=== PATIENT | female | born 1945 | race Caucasian/White ===

== ENCOUNTER 2018-05-06 11:35 | Outpatient (CLI) | payer MEDICARE | END 2018-05-06 11:36 | disposition home or self-care (01) | LOC: BICMAMMO 11:35 | PROVIDERS: ATTEND Internal Medicine | DX: Z12.31 Encounter for screening mammogram for malignant neoplasm of breast (principal); R92.1 Mammographic calcification found on diagnostic imaging of breast | CPT/HCPCS: 77063; 77067 ==

== ENCOUNTER 2019-05-08 11:25 | Outpatient (CLI) | payer MEDICARE ==
--- NOTE | 2019-05-08 12:21 | MMO ---
Bilateral MAMMO Bilat Screen [facility]. CLINICAL HISTORY: Patient is 74 years old and is seen for screening. The patient has no family history of breast cancer. The patient has no personal history of cancer. The patient has a history of right Excisional Biopsy in Feb, 2010 - benign. VIEWS: The views performed were: bilateral craniocaudal with tomosynthesis and bilateral mediolateral oblique with tomosynthesis. FILMS COMPARED: The present examination has been compared to prior imaging studies performed at [facility] on 03/18/2015, 03/28/2016, 05/01/2017 and 05/06/2018. MAMMOGRAM FINDINGS: There are scattered fibroglandular densities. Finding 1: There is an area of architectural distortion with associated post-surgical scar seen in the right breast. Finding 2: There are stable benign appearing calcifications seen in both breasts. There are no suspicious masses, suspicious calcifications, or new areas of architectural distortion. IMPRESSION: THERE IS NO MAMMOGRAPHIC EVIDENCE OF MALIGNANCY. A ROUTINE FOLLOW-UP MAMMOGRAM IN 1 YEAR IS RECOMMENDED. THE RESULTS OF THIS EXAM WERE SENT TO THE PATIENT. ACR BI-RADS Category 2 - Benign finding MAMMOGRAPHY NOTE: 1. A negative mammogram report should not delay a biopsy if a dominant of clinically suspicious mass is present. 2. Approximately 10% to 15% of breast cancers are not detected by mammography. 3. Adenosis and dense breasts may obscure an underlying neoplasm. Reported by: SHIVANI WARD MD Electonically Signed: [id number]
== END 2019-05-08 11:26 | disposition home or self-care (01) ==
LOC: BICMAMMO 11:25
PROVIDERS: ATTEND Internal Medicine
DX: Z12.31 Encounter for screening mammogram for malignant neoplasm of breast (principal); Z91.89 Other specified personal risk factors, not elsewhere classified
CPT/HCPCS: 77063; 77067

== ENCOUNTER 2020-05-12 11:30 | Outpatient (CLI) | payer MEDICARE, OTHER ==
--- NOTE | 2020-05-12 14:12 | MMO ---
Bilateral MAMMO Bilat Screen [facility]. CLINICAL HISTORY: Patient is 75 years old and is seen for screening. The patient has no family history of breast cancer. The patient has no personal history of cancer. The patient has a history of right Excisional Biopsy in Feb, 2010 - benign. VIEWS: The views performed were: bilateral craniocaudal with tomosynthesis and bilateral mediolateral oblique with tomosynthesis. FILMS COMPARED: The present examination has been compared to prior imaging studies performed at [facility] on 03/28/2016, 05/01/2017, 05/06/2018 and 05/08/2019. This study has been interpreted with the assistance of computer-aided detection. MAMMOGRAM FINDINGS: There are scattered fibroglandular densities. Benign calcifications are noted bilaterally. There are stable right post-operative changes. There are no suspicious masses, suspicious calcifications, or new areas of architectural distortion. IMPRESSION: THERE IS NO MAMMOGRAPHIC EVIDENCE OF MALIGNANCY. A ROUTINE FOLLOW-UP MAMMOGRAM IN 1 YEAR IS RECOMMENDED. THE RESULTS OF THIS EXAM WERE SENT TO THE PATIENT. ACR BI-RADS Category 2 - Benign finding MAMMOGRAPHY NOTE: 1. A negative mammogram report should not delay a biopsy if a dominant of clinically suspicious mass is present. 2. Approximately 10% to 15% of breast cancers are not detected by mammography. 3. Adenosis and dense breasts may obscure an underlying neoplasm. Reported by: JOSE MIGUEL CLOUD MD Electonically Signed: [id number]
== END 2020-05-12 11:31 | disposition home or self-care (01) ==
LOC: BICMAMMO 11:30
PROVIDERS: ATTEND Internal Medicine
DX: Z12.31 Encounter for screening mammogram for malignant neoplasm of breast (principal); Z91.89 Other specified personal risk factors, not elsewhere classified
CPT/HCPCS: 77063; 77067

== ENCOUNTER 2021-05-13 10:58 | Outpatient (CLI) | payer MEDICARE, OTHER | END 2021-05-13 10:59 | disposition home or self-care (01) | LOC: BICMAMMO 10:58 | PROVIDERS: ATTEND Internal Medicine | DX: Z12.31 Encounter for screening mammogram for malignant neoplasm of breast (principal); Z91.89 Other specified personal risk factors, not elsewhere classified | CPT/HCPCS: 77063; 77067 ==

== ENCOUNTER 2021-08-23 08:29 | Outpatient (CLI) | payer MEDICARE, OTHER | END 2021-08-23 08:30 | disposition home or self-care (01) | LOC: NM 08:29 | PROVIDERS: ATTEND Internal Medicine | DX: D35.1 Benign neoplasm of parathyroid gland (principal); R93.89 Abnormal findings on diagnostic imaging of other specified body structures | CPT/HCPCS: 78072; A9500 ==

== ENCOUNTER 2022-02-16 15:02 | Outpatient (CLI) | payer MEDICARE, OTHER ==
[2022-02-16 15:57] LABS: Hemoglobin 14.8 g/dL (12.0-15.5); Mean Corpuscular HGB CONC 33.2 g/dL (32.0-36.0); Mean Corpuscular Volume 90.3 fl (81.6-98.3); Mean Platelet Volume 10.3 fl (7.4-10.4); Platelet Count 239 10x3/uL (150-450); RBC Distribution Width 12.5 % (11.5-14.5); Red Blood Cell (RBC) Count 4.94 10x6/uL (3.90-5.03); White Blood Cell (WBC) Count 8.4 10x3/uL (3.5-10.5)
[2022-02-16 16:16] LABS: INR-International Normal Ratio 0.9; PTT 25.6 sec (22.0-33.0); Prothrombin Time 10.1 sec (9.5-12.1)
[2022-02-16 16:36] LABS: Calc. Creatinine Clearance 0 mL/min (70-130)
[2022-02-16 16:37] LABS: Anion Gap 13 mmol/L (10-20); BUN (Urea Nitrogen) 19 mg/dL (9.8-20.1); Calcium 10.5 mg/dL (7.8-10.44); Carbon Dioxide 28 mmol/L (23-31); Chloride 105 mmol/L (98-107); Glucose 114 mg/dL (83-110); Potassium 3.8 mmol/L (3.5-5.1); Sodium 142 mmol/L (136-145)
[2022-02-16 23:18] LABS: SARS-CoV-2 PCR by NAA Not Detected (NotDetected)
== END 2022-02-16 15:03 | disposition home or self-care (01) ==
LOC: LABBT 15:02
PROVIDERS: ATTEND Surgery
DX: Z01.818 Encounter for other preprocedural examination (principal); M43.16 Spondylolisthesis, lumbar region; M48.061 Spinal stenosis, lumbar region without neurogenic claudication; Z20.822 Contact with and (suspected) exposure to COVID-19
CPT/HCPCS: 80048; 85027; 85610; 85730; 93005; U0003; U0005; 93010

== ENCOUNTER 2022-02-21 05:54 | Inpatient (IN) | payer MEDICARE, OTHER ==
[2022-02-21] MEDS ORDERED: Thrombin 5000 UNITS/5 ML VIAL ONE (06:34)
[2022-02-21] MEDS ORDERED: fentaNYL Citrate/PF 100 MCG/2 ML SYRINGE ONE (06:57)
[2022-02-21] MEDS ORDERED: Scopolamine 1.5 mg/72 hour Patch ONE (07:16)
[2022-02-21] MEDS ORDERED: Midazolam HCl 2 mg/2 ml Vial ONE (07:16)
[2022-02-21] MEDS ORDERED: ceFAZolin (BATCH) 2 GM/100 ML BAG ONE (07:22)
[2022-02-21] MEDS ORDERED: Dexamethasone 20 MG/5 ML VIAL ONE (07:54)
[2022-02-21] MEDS ORDERED: Lidocaine 1% PF 5 ML VIAL ONE (07:54)
[2022-02-21] MEDS ORDERED: ePHEDrine 50 MG/ML VIAL ONE (07:54)
[2022-02-21] MEDS ORDERED: Glycopyrrolate 0.2 MG/ML 5 ML SYRINGE ONE (07:54)
[2022-02-21] MEDS ORDERED: Ondansetron PF 4 MG/2 ML Vial ONE (07:54)
[2022-02-21] MEDS ORDERED: PROPOFOL 200 MG/20 ML VIAL ONE (07:54)
[2022-02-21] MEDS ORDERED: Rocuronium Bromide 10 MG/ML (10ML VIAL) ONE (07:54)
[2022-02-21] MEDS ORDERED: Ondansetron PF 4 MG/2 ML Vial IVP PRN ×2 (09:59→20:11)
[2022-02-21] MEDS ORDERED: Acetaminophen 325 MG TAB PO PRN (09:59)
[2022-02-21] MEDS ORDERED: Acetaminophen/Codeine 30-300mg Tablet PO PRN (09:59)
[2022-02-21] MEDS ORDERED: HYDROcodone/Acetaminophen 7.5/325 mg Tablet PO PRN (09:59)
[2022-02-21] MEDS ORDERED: traMADol HCl 50 MG TAB PO PRN ×2 (09:59→20:35)
[2022-02-21] MEDS ORDERED: HYDROmorphone 0.5 MG/0.5 ML SYRINGE ONE ×2 (10:08→10:28)
[2022-02-21] MEDS ORDERED: Ondansetron HCl/PF 4 MG/2 ML Vial IVP PRN (10:11)
[2022-02-21] MEDS ORDERED: Promethazine HCl 25 MG/ML VIAL IM PRN ×2 (10:11→20:11)
[2022-02-21] MEDS ORDERED: Promethazine HCl 25 MG/ML VIAL IVPB PRN (10:11)
[2022-02-21] MEDS ORDERED: Fentanyl 250 MCG/5 ML VIAL ONE (10:26)
[2022-02-21] MEDS: tiZANidine HCl 4 MG TAB PO PRN ×2 (10:42→19:57)
[2022-02-21] MEDS: Sodium Chloride 0.9% 1,000 ML IV SCH ×2 (12:50→13:15)
[2022-02-21] MEDS: Gabapentin 300 MG CAP PO SCH ×2 (13:59→20:15)
[2022-02-21] MEDS: hydrALAZINE 25 MG TAB PO SCH ×2 (13:59→20:14)
[2022-02-21] MEDS: Morphine 2 MG/ML VIAL SLOW IVP PRN ×3 (15:56→19:56)
[2022-02-21] MEDS: ceFAZolin (BATCH) 2 GM in Premix Bag 1 BAG IVPB SCH (16:15)
[2022-02-21] MEDS ORDERED: Zolpidem Tartrate 5 MG TAB PO PRN (20:11)
[2022-02-21] MEDS ORDERED: fentaNYL Citrate/PF 2,000 MCG in Sodium Chloride 0.9% 60 ML IV PRN (20:11)
[2022-02-21] MEDS ORDERED: diphenhydrAMINE 50 MG/ML VIAL IVP PRN (20:11)
[2022-02-21] MEDS ORDERED: diphenhydrAMINE 50 MG/ML VIAL IM PRN (20:11)
[2022-02-21] MEDS ORDERED: diphenhydrAMINE 25 MG CAP PO PRN (20:11)
[2022-02-21] MEDS ORDERED: Naloxone HCl 0.4 mg/ml Vial IV PRN (20:11)
[2022-02-21] MEDS ORDERED: Communication Order-Pharmacy FS SCH (20:15)
[2022-02-21] MEDS ORDERED: Fentanyl CADD 100 ML IVPB SCH (20:15)
[2022-02-21] MEDS: Atorvastatin Calcium 10 MG TAB PO SCH (20:15)
[2022-02-21] MEDS: Zinc Sulfate 220 MG CAP PO SCH (20:15)
[2022-02-21] MEDS ORDERED: Fentanyl 100 MCG/2 ML VIAL SLOW IVP SCH (20:30)
[2022-02-21] MEDS: Acetaminophen 325 MG TAB PO SCH (20:50)
[2022-02-21] MEDS: Ketorolac Tromethamine 30 MG/ML VIAL IVP SCH (21:58)
[2022-02-21] MEDS ORDERED: Acetaminophen 325 MG TAB PO SCH (23:59)
[2022-02-21] MEDS ORDERED: Ketorolac Tromethamine 30 MG/ML VIAL IVP SCH (23:59)
[2022-02-22] MEDS: ceFAZolin (BATCH) 2 GM in Premix Bag 1 BAG IVPB SCH
[2022-02-22] MEDS: Sodium Chloride 0.9% 1,000 ML IV SCH ×2 (02:21→15:15)
[2022-02-22] MEDS: Acetaminophen 325 MG TAB PO SCH ×4 (02:29→21:10)
[2022-02-22] MEDS: Ketorolac Tromethamine 30 MG/ML VIAL IVP SCH ×4 (02:31→21:08)
[2022-02-22] MEDS: tiZANidine HCl 4 MG TAB PO PRN ×2 (04:09→21:24)
[2022-02-22] MEDS: Gabapentin 300 MG CAP PO SCH ×3 (08:48→21:08)
[2022-02-22] MEDS: Zinc Sulfate 220 MG CAP PO SCH ×2 (08:48→21:07)
[2022-02-22] MEDS: Calcium Carbonate 600 MG + Vit D TAB PO SCH ×2 (08:48→08:49)
[2022-02-22] MEDS: hydrALAZINE 25 MG TAB PO SCH ×3 (08:48→21:06)
[2022-02-22] MEDS: Multivitamin W/ Minerals 1 TAB PO SCH (08:48)
[2022-02-22] MEDS: Cholecalciferol 1,000 UNITS (25 MCG) TAB PO SCH (08:48)
[2022-02-22] MEDS ORDERED: Polyethylene Glycol 3350 17 GM Packet PO PRN (09:27)
[2022-02-22] MEDS ORDERED: Bisacodyl 5 MG TAB PO PRN (09:27)
[2022-02-22] MEDS ORDERED: Bisacodyl 10 MG SUPP PR PRN (09:27)
[2022-02-22] MEDS: Losartan/Hydrochlorothiazide 100 mg/25 mg Tablet PO SCH (10:30)
[2022-02-22] MEDS: Docusate 100 MG CAP PO SCH ×2 (10:30→21:07)
[2022-02-22 14:52] VITALS: BMI 29.9
[2022-02-22] MEDS: Atorvastatin Calcium 10 MG TAB PO SCH (21:07)
[2022-02-23] MEDS: Ketorolac Tromethamine 30 MG/ML VIAL IVP SCH ×4 (03:36→20:41)
[2022-02-23] MEDS: Acetaminophen 325 MG TAB PO SCH ×4 (03:37→20:41)
[2022-02-23] MEDS: Sodium Chloride 0.9% 1,000 ML IV SCH (03:42)
[2022-02-23] MEDS: Docusate 100 MG CAP PO SCH ×2 (08:54→20:44)
[2022-02-23] MEDS: Cholecalciferol 1,000 UNITS (25 MCG) TAB PO SCH (08:54)
[2022-02-23] MEDS: Gabapentin 300 MG CAP PO SCH ×3 (08:54→20:40)
[2022-02-23] MEDS: hydrALAZINE 25 MG TAB PO SCH ×3 (08:55→20:42)
[2022-02-23] MEDS: Zinc Sulfate 220 MG CAP PO SCH ×2 (08:56→20:40)
[2022-02-23] MEDS: Multivitamin W/ Minerals 1 TAB PO SCH (08:56)
[2022-02-23] MEDS: Losartan/Hydrochlorothiazide 100 mg/25 mg Tablet PO SCH (08:56)
[2022-02-23] MEDS: Fentanyl 100 MCG/2 ML VIAL SLOW IVP PRN (17:30)
[2022-02-23] MEDS: Atorvastatin Calcium 10 MG TAB PO SCH (20:40)
[2022-02-24] MEDS: Acetaminophen 325 MG TAB PO SCH ×2 (03:25→10:31)
[2022-02-24] MEDS: tiZANidine HCl 4 MG TAB PO PRN (03:26)
[2022-02-24] MEDS ORDERED: HYDROcodone/Acetaminophen 5/325 mg Tablet PO PRN (07:55)
[2022-02-24] MEDS ORDERED: Acetaminophen/Codeine 30-300mg Tablet PO PRN (07:56)
[2022-02-24 08:41] VITALS: BP 131/79; TEMP 98.9
[2022-02-24] MEDS: Fentanyl 100 MCG/2 ML VIAL SLOW IVP PRN (09:32)
[2022-02-24] MEDS: Calcium Carbonate 600 MG + Vit D TAB PO SCH (10:30)
[2022-02-24] MEDS: Zinc Sulfate 220 MG CAP PO SCH (10:30)
[2022-02-24] MEDS: Multivitamin W/ Minerals 1 TAB PO SCH (10:30)
[2022-02-24] MEDS: hydrALAZINE 25 MG TAB PO SCH (10:30)
[2022-02-24] MEDS: Gabapentin 300 MG CAP PO SCH (10:31)
[2022-02-24] MEDS: Cholecalciferol 1,000 UNITS (25 MCG) TAB PO SCH (10:31)
[2022-02-24] MEDS: Losartan/Hydrochlorothiazide 100 mg/25 mg Tablet PO SCH (10:31)
[2022-02-24] MEDS: Docusate 100 MG CAP PO SCH (10:32)
== END 2022-02-24 12:48 | DRG 460 ==
LOC: SDC 05:54 → MSONC 10:04 → OBSVTOIN 02-22 16:13
PROVIDERS: ADMIT Surgery; ATTEND Surgery
PROC: 0SG1071 Fusion of 2 or more Lumbar Vertebral Joints with Autologous Tissue Substitute, Posterior Approach, Posterior Column, Open Approach (ICD-10-PCS; principal; 2022-02-21)
PROC: 01NB0ZZ Release Lumbar Nerve, Open Approach (ICD-10-PCS; 2022-02-21)
DX: M48.062 Spinal stenosis, lumbar region with neurogenic claudication (principal); M43.16 Spondylolisthesis, lumbar region; Z20.822 Contact with and (suspected) exposure to COVID-19; Z79.899 Other long term (current) drug therapy
CPT/HCPCS: 36415; 76000; 82565; 96365; 96375; 96376; C1713; G0378; J0690; J1100; J1170; J1885; J2250; J2270; J2405; J2704; J3010; J3370; J3490; J7050

== ENCOUNTER 2022-05-17 11:50 | Outpatient (CLI) | payer MEDICARE, OTHER | END 2022-05-17 11:51 | disposition home or self-care (01) | LOC: BICMAMMO 11:50 | PROVIDERS: ATTEND Internal Medicine | DX: Z12.31 Encounter for screening mammogram for malignant neoplasm of breast (principal); Z91.89 Other specified personal risk factors, not elsewhere classified | CPT/HCPCS: 77063; 77067 ==

== ENCOUNTER 2022-12-25 11:43 | Emergency (ER) | payer MEDICARE, OTHER ==
[2022-12-25] MEDS ORDERED: Albuterol 200 PUFF (6.7GM INHALER) ONE (12:39)
[2022-12-25 12:49] LABS: #Basophils 0.1 thou/uL (0.0-0.2); #Eosinphils 0.5 thou/uL (0.0-0.7); #Lymphocytes 1.3 thou/uL (1.20-3.40); #Monocytes 0.8 thou/uL (0.11-0.59); #Neutrophils 4.7 thou/uL (1.40-6.50); %Basophils 0.9 % (0.0-1.0); %Eosinophils 6.8 % (0.0-10.0); %Lymphocytes 17.2 % (21.0-51.0); %Monocytes 11.1 % (0.0-10.0); Mean Corpuscular HGB CONC 32.9 g/dL (32.0-36.0); Mean Corpuscular Hemoglobin 31.2 pg (27.0-31.0); Mean Corpuscular Volume 94.8 fl (78.0-98.0); Mean Platelet Volume 8.2 fL (7.4-10.4); Platelet Count 181 10x3/uL (130-400); RBC Distribution Width 11.9 % (11.5-14.5); Red Blood Cell (RBC) Count 4.81 mill/uL (4.20-5.40); White Blood Cell (WBC) Count 7.4 10x3/uL (4.8-10.8)
[2022-12-25 13:18] LABS: ALT (SGPT) 30 U/L (8-55); AST (SGOT) 35 U/L (5-34); Albumin 4.1 g/dL (3.4-4.8); Alkaline Phosphatase 90 U/L (40-110); Anion Gap 13 mmol/L (10-20); BUN (Urea Nitrogen) 11 mg/dL (9.8-20.1); Bilirubin, Total 0.7 mg/dL (0.2-1.2); Calc. Creatinine Clearance 0 mL/min (70-130); Calcium 10.3 mg/dL (7.8-10.44); Carbon Dioxide 28 mmol/L (23-31); Chloride 102 mmol/L (98-107); Estimated GFR 84; Globulin 2.9 g/dL (2.4-3.5); Glucose 136 mg/dL (83-110); Lipase 15 U/L (8-78); Potassium 3.3 mmol/L (3.5-5.1); Sodium 140 mmol/L (136-145)
[2022-12-25] MEDS ORDERED: Potassium Chloride 20 MEQ TAB ONE (14:01)
== END 2022-12-25 14:00 | disposition home or self-care (01) ==
LOC: ERS 11:43
DX: U07.1 COVID-19 (principal); R07.9 Chest pain, unspecified; I10 Essential (primary) hypertension
CPT/HCPCS: 36415; 71045; 80053; 83690; 83880; 84484; 85025; 93005; 94664

== ENCOUNTER 2023-05-18 11:03 | Outpatient (CLI) | payer MEDICARE, OTHER | END 2023-05-18 11:04 | disposition home or self-care (01) | LOC: BICMAMMO 11:03 | PROVIDERS: ATTEND Internal Medicine | DX: Z12.31 Encounter for screening mammogram for malignant neoplasm of breast (principal); Z91.89 Other specified personal risk factors, not elsewhere classified | CPT/HCPCS: 77063; 77067 ==

== ENCOUNTER 2023-07-28 22:44 | Inpatient (IN) | payer MEDICARE, OTHER ==
[~2023-07-28 22:44] MED LIST: Iopamidol-370 76% 500 ML MDV (1 ML CHARGE) ONE
[2023-07-28] MEDS ORDERED: Ondansetron PF 4 MG/2 ML Vial ONE (23:40)
[2023-07-28] MEDS ORDERED: Morphine 4 MG/ML VIAL ONE (23:40)
[2023-07-28 23:52] LABS: #Monocytes 0.8 thou/uL (0.11-0.59); #Neutrophils 11.3 thou/uL (1.40-6.50); %Basophils 0.3 % (0.0-1.0); %Eosinophils 0.2 % (0.0-10.0); %Lymphocytes 10.2 % (21.0-51.0); %Monocytes 5.8 % (0.0-10.0); %Neutrophils 83.2 % (42.0-75.0); Hematocrit 45.6 % (36.0-47.0); Hemoglobin 15.6 g/dL (12.0-16.0); Mean Corpuscular HGB CONC 34.2 g/dL (32.0-36.0); Mean Corpuscular Hemoglobin 30.5 pg (27.0-31.0); Mean Corpuscular Volume 89.2 fl (78.0-98.0); Mean Platelet Volume 10.1 fL (7.4-10.4); Platelet Count 281 10x3/uL (130-400); RBC Distribution Width 12.5 % (11.5-14.5); Red Blood Cell (RBC) Count 5.11 mill/uL (4.20-5.40); White Blood Cell (WBC) Count 13.6 10x3/uL (4.8-10.8)
[2023-07-29 00:18] LABS: Troponin I Less than 0.010 ng/mL (< 0.028)
[2023-07-29 00:21] LABS: ALT (SGPT) 19 U/L (8-55); AST (SGOT) 24 U/L (5-34); Albumin 4.2 g/dL (3.4-4.8); Alkaline Phosphatase 80 U/L (40-110); Anion Gap 17 mmol/L (10-20); BUN (Urea Nitrogen) 24 mg/dL (9.8-20.1); Bilirubin, Total 0.9 mg/dL (0.2-1.2); Calc. Creatinine Clearance 0 mL/min (70-130); Calcium 9.9 mg/dL (7.8-10.44); Carbon Dioxide 24 mmol/L (23-31); Chloride 99 mmol/L (98-107); Estimated GFR 82; Globulin 2.5 g/dL (2.4-3.5); Glucose 187 mg/dL (83-110); Lipase 24 U/L (8-78); Potassium 3.4 mmol/L (3.5-5.1); Protein, Total 6.7 g/dL (5.8-8.1); Sodium 137 mmol/L (136-145)
[2023-07-29] MEDS ORDERED: SUGAMMADEX SODIUM 200 MG/2 ML VIAL ONE (00:37)
[2023-07-29] MEDS ORDERED: Fentanyl 250 MCG/5 ML VIAL ONE (00:37)
[2023-07-29] MEDS ORDERED: Morphine 4 MG/ML VIAL ONE (00:38)
[2023-07-29] MEDS ORDERED: Piperacillin/Tazobactam 4.5 GM VIAL ONE (00:49)
[2023-07-29] MEDS ORDERED: Ketorolac Tromethamine 30 MG/ML VIAL ONE (00:51)
[2023-07-29] MEDS ORDERED: TETANUS, DIPHTHERIA TOX,ADULT (TDVAX) 0.5 ML VIAL IM ONE (01:03)
[2023-07-29] MEDS ORDERED: Ondansetron PF 4 MG/2 ML Vial IVP PRN (01:03)
[2023-07-29] MEDS ORDERED: Morphine 4 MG/ML VIAL SLOW IVP PRN (01:03)
[2023-07-29] MEDS ORDERED: Ketorolac Tromethamine 30 MG/ML VIAL IVP PRN (01:07)
[2023-07-29] MEDS ORDERED: Potassium Chloride 20 MEQ in Lactated Ringer's 1,000 ML IV SCH (01:15)
[2023-07-29] MEDS ORDERED: Rocuronium Bromide 10 MG/ML (10ML VIAL) ONE (01:33)
[2023-07-29] MEDS ORDERED: Ondansetron PF 4 MG/2 ML Vial ONE (01:33)
[2023-07-29] MEDS ORDERED: Dexamethasone 20 MG/5 ML VIAL ONE (01:33)
[2023-07-29] MEDS ORDERED: Succinylcholine 200 MG/10 ml SYRINGE FS ONE (01:33)
[2023-07-29] MEDS ORDERED: ePHEDrine Sulfate 50 MG/10 ML VIAL ONE (01:33)
[2023-07-29] MEDS ORDERED: Lidocaine 1% PF 5 ML VIAL ONE (01:33)
[2023-07-29] MEDS ORDERED: PROPOFOL 200 MG/20 ML VIAL ONE (01:33)
[2023-07-29] MEDS ORDERED: diphenhydrAMINE 50 MG/ML VIAL IM PRN (02:59)
[2023-07-29] MEDS ORDERED: Naloxone HCl 0.4 mg/ml Vial IV PRN (02:59)
[2023-07-29] MEDS ORDERED: diphenhydrAMINE 50 MG/ML VIAL IVP PRN (02:59)
[2023-07-29] MEDS ORDERED: diphenhydrAMINE 25 MG CAP PO PRN (02:59)
[2023-07-29] MEDS ORDERED: Promethazine HCl 25 MG/ML VIAL IM PRN ×2 (02:59→03:03)
[2023-07-29] MEDS ORDERED: Communication Order-Pharmacy FS SCH (03:00)
[2023-07-29] MEDS ORDERED: LevoFLOXacin 750 mg/D5W 750 MG in Premix 1 BAG IVPB SCH (03:00)
[2023-07-29] MEDS ORDERED: HYDROmorphone 0.5 MG/0.5 ML SYRINGE ONE ×2 (03:01→03:18)
[2023-07-29] MEDS ORDERED: HYDROmorphone 2 MG/ML VIAL SLOW IVP PRN (03:03)
[2023-07-29] MEDS ORDERED: Ondansetron HCl/PF 4 MG/2 ML Vial IVP PRN (03:03)
[2023-07-29] MEDS ORDERED: Fentanyl CADD 100 ML IV PRN (03:11)
[2023-07-29 04:24] VITALS: BMI 30.3
[2023-07-29] MEDS: Potassium Chloride 20 MEQ in Lactated Ringer's 1,000 ML IV SCH ×3 (05:28→22:20)
[2023-07-29 05:51] LABS: #Monocytes 0.5 thou/uL (0.11-0.59); #Neutrophils 9.9 thou/uL (1.40-6.50); %Basophils 0.1 % (0.0-1.0); %Lymphocytes 4.5 % (21.0-51.0); %Monocytes 4.6 % (0.0-10.0); %Neutrophils 90.5 % (42.0-75.0); Hemoglobin 13.7 g/dL (12.0-16.0); Mean Corpuscular HGB CONC 33.4 g/dL (32.0-36.0); Mean Corpuscular Hemoglobin 30.6 pg (27.0-31.0); Mean Corpuscular Volume 91.7 fl (78.0-98.0); Mean Platelet Volume 10.3 fL (7.4-10.4); Platelet Count 189 10x3/uL (130-400); RBC Distribution Width 12.9 % (11.5-14.5); Red Blood Cell (RBC) Count 4.47 mill/uL (4.20-5.40)
[2023-07-29 06:19] LABS: ALT (SGPT) 23 U/L (8-55); AST (SGOT) 23 U/L (5-34); Albumin 4.1 g/dL (3.4-4.8); Alkaline Phosphatase 63 U/L (40-110); Anion Gap 14 mmol/L (10-20); BUN (Urea Nitrogen) 17 mg/dL (9.8-20.1); Bilirubin, Total 1.1 mg/dL (0.2-1.2); Calc. Creatinine Clearance 78 mL/min (70-130); Calcium 9.1 mg/dL (7.8-10.44); Carbon Dioxide 28 mmol/L (23-31); Chloride 100 mmol/L (98-107); Estimated GFR 80; Globulin 1.9 g/dL (2.4-3.5); Glucose 220 mg/dL (83-110); Potassium 3.5 mmol/L (3.5-5.1); Sodium 138 mmol/L (136-145)
[2023-07-29] MEDS: hydrALAZINE 25 MG TAB PO SCH ×3 (09:29→20:32)
[2023-07-29] MEDS: Pantoprazole 40 MG VIAL IVP SCH ×2 (09:30→20:35)
[2023-07-29] MEDS: Verapamil 240 MG SR.TAB PO SCH (11:15)
[2023-07-29] MEDS ORDERED: Magnevist 469MG/ML 20 ML VIAL ONE (11:34)
[2023-07-29] MEDS ORDERED: Phenol 177 ML BOT PO PRN (18:24)
[2023-07-30] MEDS: LevoFLOXacin 750 mg/D5W 750 MG in Premix 1 BAG IVPB SCH (05:06)
[2023-07-30] MEDS: Potassium Chloride 20 MEQ in Lactated Ringer's 1,000 ML IV SCH ×3 (06:00→22:14)
[2023-07-30] MEDS: Fentanyl CADD 100 ML IV PRN (06:56)
[2023-07-30] MEDS: hydrALAZINE 25 MG TAB PO SCH ×3 (08:15→21:02)
[2023-07-30] MEDS: Pantoprazole 40 MG VIAL IVP SCH ×2 (08:16→20:48)
[2023-07-30] MEDS: Verapamil 240 MG SR.TAB PO SCH (08:21)
[2023-07-30] MEDS: Senokot S 8.6-50 MG TAB PO SCH ×2 (08:38→20:47)
[2023-07-30] MEDS: Polyethylene Glycol 3350 17 GM Packet PO SCH (08:39)
[2023-07-30] MEDS ORDERED: Morphine 4 MG/ML VIAL SLOW IVP PRN (10:21)
[2023-07-30] MEDS ORDERED: Labetalol HCl 200 MG, Admixture Fee 1 EACH in Sodium Chloride 0.9% 250 ML 160 ML IVPB SCH (12:00)
[2023-07-30] MEDS ORDERED: Losartan/Hydrochlorothiazide 100 mg/25 mg Tablet PO SCH ×2 (12:03→12:30)
[2023-07-30] MEDS ORDERED: Labetalol HCl 100 MG TAB PER TUBE SCH (12:30)
[2023-07-30] MEDS: Acetaminophen 500 MG TAB PO SCH ×2 (12:44→18:27)
[2023-07-30] MEDS ORDERED: Losartan 25 MG TAB PO SCH (12:45)
[2023-07-30] MEDS ORDERED: Hydrochlorothiazide 25 MG TAB PO SCH (12:45)
[2023-07-30] MEDS: Gabapentin 300 MG CAP PO SCH ×2 (15:21→20:47)
[2023-07-30] MEDS: tiZANidine HCl 4 MG TAB PO SCH (20:48)
[2023-07-30] MEDS ORDERED: Non-Formulary Item 1 EACH (Tizanidine Hcl [Tizanidine Hcl] 4 MG Capsule) PO SCH (21:00)
[2023-07-30] MEDS: Labetalol HCl 100 MG TAB PER TUBE SCH (22:13)
[2023-07-31] MEDS: Acetaminophen 500 MG TAB PO SCH ×5 (01:02→23:27)
[2023-07-31] MEDS: LevoFLOXacin 750 mg/D5W 750 MG in Premix 1 BAG IVPB SCH (05:02)
[2023-07-31 05:30] LABS: #Eosinphils 0.5 thou/uL (0.0-0.7); #Monocytes 0.8 thou/uL (0.11-0.59); %Basophils 0.2 % (0.0-1.0); %Eosinophils 4.1 % (0.0-10.0); %Lymphocytes 12.7 % (21.0-51.0); %Monocytes 6.1 % (0.0-10.0); %Neutrophils 76.4 % (42.0-75.0); Hematocrit 40.8 % (36.0-47.0); Mean Corpuscular HGB CONC 31.9 g/dL (32.0-36.0); Mean Corpuscular Hemoglobin 30.2 pg (27.0-31.0); Mean Corpuscular Volume 94.9 fl (78.0-98.0); Mean Platelet Volume 10.7 fL (7.4-10.4); Platelet Count 203 10x3/uL (130-400); RBC Distribution Width 13.4 % (11.5-14.5); White Blood Cell (WBC) Count 13.1 10x3/uL (4.8-10.8)
[2023-07-31] MEDS: Potassium Chloride 20 MEQ in Lactated Ringer's 1,000 ML IV SCH ×3 (05:48→22:36)
[2023-07-31 06:10] LABS: ALT (SGPT) 17 U/L (8-55); AST (SGOT) 18 U/L (5-34); Albumin 3.5 g/dL (3.4-4.8); Alkaline Phosphatase 95 U/L (40-110); Anion Gap 13 mmol/L (10-20); BUN (Urea Nitrogen) 10 mg/dL (9.8-20.1); Bilirubin, Total 0.9 mg/dL (0.2-1.2); Calc. Creatinine Clearance 86 mL/min (70-130); Calcium 10.4 mg/dL (7.8-10.44); Carbon Dioxide 26 mmol/L (23-31); Chloride 103 mmol/L (98-107); Estimated GFR 88; Globulin 2.5 g/dL (2.4-3.5); Glucose 84 mg/dL (83-110); Potassium 4.3 mmol/L (3.5-5.1); Sodium 138 mmol/L (136-145)
[2023-07-31] MEDS ORDERED: Losartan/Hydrochlorothiazide 100 mg/25 mg Tablet PO SCH ×3 (09:00)
[2023-07-31] MEDS: Verapamil 240 MG SR.TAB PO SCH (12:31)
[2023-07-31] MEDS: methylPREDNISolone 4 mg Tablet PO SCH (12:32)
[2023-07-31] MEDS: Losartan 25 MG TAB PO SCH (12:32)
[2023-07-31] MEDS: Senokot S 8.6-50 MG TAB PO SCH ×2 (12:32→22:22)
[2023-07-31] MEDS: Hydrochlorothiazide 25 MG TAB PO SCH (12:32)
[2023-07-31] MEDS: Labetalol HCl 100 MG TAB PER TUBE SCH ×2 (12:33→22:21)
[2023-07-31] MEDS: Pantoprazole 40 MG VIAL IVP SCH ×2 (12:33→22:20)
[2023-07-31] MEDS: Gabapentin 300 MG CAP PO SCH ×3 (12:33→22:19)
[2023-07-31] MEDS: hydrALAZINE 25 MG TAB PO SCH ×3 (12:33→22:21)
[2023-07-31] MEDS: Polyethylene Glycol 3350 17 GM Packet PO SCH (12:33)
[2023-07-31] MEDS ORDERED: MD-Gastroview 120 ML BOT ONE (12:35)
[2023-07-31] MEDS: Fentanyl CADD 100 ML IV PRN (20:21)
[2023-07-31] MEDS: tiZANidine HCl 4 MG TAB PO SCH (22:20)
[2023-08-01] MEDS: Potassium Chloride 20 MEQ in Lactated Ringer's 1,000 ML IV SCH (02:38)
[2023-08-01] MEDS: LevoFLOXacin 750 mg/D5W 750 MG in Premix 1 BAG IVPB SCH (03:28)
[2023-08-01] MEDS: Acetaminophen 500 MG TAB PO SCH ×4 (06:09→23:36)
[2023-08-01] MEDS ORDERED: Potassium Chloride 20 MEQ in Lactated Ringer's 1,000 ML IV SCH (07:30)
[2023-08-01] MEDS: Losartan 25 MG TAB PO SCH (10:21)
[2023-08-01] MEDS: Gabapentin 300 MG CAP PO SCH ×3 (10:22→20:18)
[2023-08-01] MEDS: Hydrochlorothiazide 25 MG TAB PO SCH (10:22)
[2023-08-01] MEDS: hydrALAZINE 25 MG TAB PO SCH ×2 (10:22→16:27)
[2023-08-01] MEDS: Verapamil 240 MG SR.TAB PO SCH (10:22)
[2023-08-01] MEDS: methylPREDNISolone 4 mg Tablet PO SCH (10:22)
[2023-08-01] MEDS: Pantoprazole 40 MG VIAL IVP SCH (10:23)
[2023-08-01] MEDS: Labetalol HCl 100 MG TAB PER TUBE SCH ×2 (10:24→20:18)
[2023-08-01] MEDS: Polyethylene Glycol 3350 17 GM Packet PO SCH (10:33)
[2023-08-01] MEDS: Senokot S 8.6-50 MG TAB PO SCH ×2 (10:33→20:16)
[2023-08-01] MEDS ORDERED: oxyCODONE 5 MG TAB PO PRN ×3 (12:27→12:31)
[2023-08-01] MEDS ORDERED: fentaNYL 50 mcg/mL 1 mL Vial SLOW IVP PRN (12:31)
[2023-08-01] MEDS ORDERED: Acetaminophen 500 MG TAB PO PRN (17:03)
[2023-08-01] MEDS: tiZANidine HCl 4 MG TAB PO SCH (20:17)
[2023-08-01] MEDS: traMADol HCl 50 MG TAB PO PRN (20:19)
[2023-08-01] MEDS ORDERED: Atorvastatin Calcium 10 MG TAB PO SCH (21:00)
[2023-08-01] MEDS ORDERED: Non-Formulary Item 1 EACH (Zinc [Zinc] 50 MG Tablet) PO SCH (21:00)
[2023-08-02] MEDS: traMADol HCl 50 MG TAB PO PRN ×3 (03:32→18:16)
[2023-08-02] MEDS: Acetaminophen 500 MG TAB PO SCH ×3 (05:32→18:15)
[2023-08-02] MEDS ORDERED: Calcium Carbonate 600 MG + Vit D TAB PO SCH (09:00)
[2023-08-02] MEDS ORDERED: CO Q-10 CAPSULE 100 MG PO SCH (09:00)
[2023-08-02] MEDS ORDERED: Multivitamin W/ Minerals 1 TAB PO SCH (09:00)
[2023-08-02] MEDS: Hydrochlorothiazide 25 MG TAB PO SCH (09:59)
[2023-08-02] MEDS: Losartan 25 MG TAB PO SCH (09:59)
[2023-08-02] MEDS: Senokot S 8.6-50 MG TAB PO SCH (10:00)
[2023-08-02] MEDS: Labetalol HCl 100 MG TAB PER TUBE SCH (10:01)
[2023-08-02] MEDS: Verapamil 240 MG SR.TAB PO SCH (10:01)
[2023-08-02] MEDS: Gabapentin 300 MG CAP PO SCH ×2 (10:01→16:10)
[2023-08-02] MEDS: Polyethylene Glycol 3350 17 GM Packet PO SCH (10:01)
[2023-08-02 15:39] VITALS: BP 153/66; TEMP 97.3
== END 2023-08-02 19:34 | DRG 326 ==
LOC: ERS 22:44 → SURG A 07-29 01:03
PROVIDERS: ADMIT Specialist; ATTEND Specialist
PROC: 0DU707Z Supplement Stomach, Pylorus with Autologous Tissue Substitute, Open Approach (ICD-10-PCS; principal; 2023-07-29)
PROC: 3E033XZ Introduction of Vasopressor into Peripheral Vein, Percutaneous Approach (ICD-10-PCS; 2023-07-29)
PROC: 0DQ70ZZ Repair Stomach, Pylorus, Open Approach (ICD-10-PCS; 2023-07-29)
DX: K25.5 Chronic or unspecified gastric ulcer with perforation (principal); K65.9 Peritonitis, unspecified; I10 Essential (primary) hypertension; M43.16 Spondylolisthesis, lumbar region; M47.26 Other spondylosis with radiculopathy, lumbar region; M51.16 Intervertebral disc disorders with radiculopathy, lumbar region; T39.395A Adverse effect of other nonsteroidal anti-inflammatory drugs [NSAID], initial encounter; F41.9 Anxiety disorder, unspecified; J45.909 Unspecified asthma, uncomplicated; Z96.653 Presence of artificial knee joint, bilateral; Z90.89 Acquired absence of other organs; Z90.722 Acquired absence of ovaries, bilateral; Z90.79 Acquired absence of other genital organ(s); Z98.890 Other specified postprocedural states; Z98.1 Arthrodesis status; Z79.899 Other long term (current) drug therapy; Z90.710 Acquired absence of both cervix and uterus
CPT/HCPCS: 36415; 71045; 72158; 74177; 74250; 80053; 83690; 84484; 85025; 93005; 96365; 96375; 96376; A4314; A9579; C9113; J1100; J1170; J1650; J1885; J1956; J2270; J2405; J2543; J2704; J3010; J3480; J7120; J7509; Q9963; Q9967

== ENCOUNTER 2024-05-19 11:49 | Outpatient (CLI) | payer MEDICARE, OTHER | END 2024-05-19 11:50 | disposition home or self-care (01) | LOC: BICMAMMO 11:49 | PROVIDERS: ATTEND Internal Medicine | DX: Z12.31 Encounter for screening mammogram for malignant neoplasm of breast (principal); Z91.89 Other specified personal risk factors, not elsewhere classified | CPT/HCPCS: 77063; 77067 ==

== ENCOUNTER 2025-05-21 11:25 | Outpatient (CLI) | payer MEDICARE, OTHER | END 2025-05-21 11:26 | disposition home or self-care (01) | LOC: BICMAMMO 11:25 | PROVIDERS: ATTEND Internal Medicine | DX: Z12.31 Encounter for screening mammogram for malignant neoplasm of breast (principal); Z91.89 Other specified personal risk factors, not elsewhere classified | CPT/HCPCS: 77063; 77067 ==